=== PATIENT | male | born 1960 | race Caucasian/White ===

== ENCOUNTER 2018-04-17 16:49 | Emergency (ER) | payer OTHER ==
[~2018-04-17] VITALS: Ht 185.4 cm; Wt 117.9 kg
[2018-04-17] MEDS ORDERED: CELLCEPT500 MG PO (17:00)
[2018-04-17] MEDS ORDERED: PROGRAF1 MG (17:01)
[2018-04-17] MEDS ORDERED: PROGRAF0.5 MG PO (17:01)
[2018-04-17] MEDS ORDERED: ASPIR 8181 MG PO (17:01)
[2018-04-17] MEDS ORDERED: PREDNISONE 5 MG5 M1 PO (17:01)
[2018-04-17] MEDS ORDERED: URSO FORTE500 MG PO (17:01)
[2018-04-17] MEDS ORDERED: IRON325 (17:02)
[2018-04-17] MEDS ORDERED: ZOLOFT50 MG PO (17:02)
[2018-04-17] MEDS ORDERED: LISINOPRIL5 MG PO (17:02)
[2018-04-17] MEDS ORDERED: ZINC CHELATE50 MG PO (17:02)
[2018-04-17] MEDS ORDERED: CALCIUM + VITA1 EACH PO (17:03)
[2018-04-17] MEDS ORDERED: OMEPRAZOLE 20 M20 M1 PO (17:03)
[2018-04-17] MEDS ORDERED: AUGMENTIN 875-1 EACH PO (18:13)
[2018-04-17 18:34] VITALS: BP 122/74
== END 2018-04-17 18:31 | disposition home or self-care (01) ==
LOC: M.ERS 16:49
DX: S81.811A Laceration without foreign body, right lower leg, initial encounter (principal); E11.9 Type 2 diabetes mellitus without complications; I25.10 Atherosclerotic heart disease of native coronary artery without angina pectoris; I10 Essential (primary) hypertension; E78.5 Hyperlipidemia, unspecified; Z94.4 Liver transplant status; Z88.5 Allergy status to narcotic agent; X58.XXXA Exposure to other specified factors, initial encounter; Y93.89 Activity, other specified; Y92.89 Other specified places as the place of occurrence of the external cause; Y99.8 Other external cause status

== ENCOUNTER → 2019-11-17 | Outpatient (CLI) | payer OTHER ==
[~2019-11-17] MED LIST: ASPIR 8181 MG PO; AUGMENTIN 875-1 EACH PO; CALCIUM + VITA1 EACH PO; CELLCEPT500 MG PO; IRON325; LISINOPRIL5 MG PO; OMEPRAZOLE 20 M20 M1 PO; PREDNISONE 5 MG5 M1 PO; PROGRAF0.5 MG PO; PROGRAF1 MG; URSO FORTE500 MG PO; ZINC CHELATE50 MG PO; ZOLOFT50 MG PO
== END ==
LOC: M.MRI 16:26
DX: S83.281A Other tear of lateral meniscus, current injury, right knee, initial encounter (principal); M25.461 Effusion, right knee; X58.XXXA Exposure to other specified factors, initial encounter; Y93.9 Activity, unspecified; Y92.89 Other specified places as the place of occurrence of the external cause; Y99.8 Other external cause status

== ENCOUNTER 2020-01-26 08:37 | Inpatient (IN) | payer OTHER ==
[2020-01-21 10:17] LABS: HEMATOCRIT 38.4 % (42.0-52.0); HEMOGLOBIN 13.3 gm/dL (14.0-18.0); MCH 31.7 pg (26.0-34.0); MCHC 34.7 g/dL (28.0-37.0); MCV 91.4 fL (80.0-100.0); MPV 6.6 fl. (7.2-11.1); RBC 4.21 mil/uL (4.50-6.00); RDW-CV 14.3 % (10.5-14.5)
[2020-01-21 10:30] LABS: ALBUMIN 3.3 g/dL (3.4-5.0); CALCIUM 8.9 mg/dL (8.5-10.1); CREATININE 1.1 mg/dL (0.6-1.3); POTASSIUM 4.7 mmol/L (3.5-5.1); TOTAL BILIRUBIN 2.1 mg/dL (<0.1-1.0)
[2020-01-21 10:55] LABS: URINE BILIRUBIN NEGATIVE (Negative); URINE BLOOD TRACE (Negative); URINE CLARITY CLEAR; URINE COLOR YELLOW; URINE GLUCOSE-RANDOM 2+ (Negative); URINE KETONES NEGATIVE (Negative); URINE LEUKOCYTES-REFLEX 1+ (Negative); URINE NITRITE-REFLEX NEGATIVE (Negative); URINE PROTEIN NEGATIVE (Negative); URINE SPECIFIC GRAVITY 1.025 (1.005-1.030)
[2020-01-21 11:01] LABS: INR 1.1; PROTIME 11.7 Seconds (9.20-11.50)
[2020-01-21 11:01] LABS: SQUAMOUS NONE SEEN /LPF (0-3)
[2020-01-21 11:02] LABS: URINE WBC-REFLEX 0-5 Rare /HPF (0-5)
[2020-01-21 11:03] LABS: BACTERIA-REFLEX >30 Many /HPF (None Seen); CASTS None Seen /LPF (None Seen); CRYSTALS None Seen /LPF (None Seen); MUCUS None Seen strn/LPF (None Seen)
--- NOTE | 2020-01-21 14:16 | EKG ---
[place] [address] ELECTROCARDIOGRAM REPORT Name: TODD CASTANEDA Room: PRE IN [facility]#: [id number] Admission: Attend Phys: Javier Lei Discharge: Date of : 58 Date of Service: 01/21/20 1025 Report #: [id number] THIS REPORT FOR: //name// [facility] Test Date: 2020-01-21 Test Time: 10:25:24 Pat Name: TODD CASTANEDA Department: Room: Gender: [employer]: : 1960 Requested By: Sukhdev Mckeon Order Number: [id number] Marija MD: Abran Dukes Measurements Intervals [place] Rate: 70 P: 56 RI: 177 QRS: 3 QRSD: 102 T: 26 QT: 397 QTc: 429 Interpretive Statements Sinus rhythm Consider left atrial enlargement No previous ECG available for comparison Electronically Signed On 01-21-2020 14:15:33 CDT by Abran Dukes [email or web address] <ELECTRONICALLY SIGNED> By: Abran Dukes MD, [facility] 01/21/20 1415 1025 1025 Abran Dukes MD, FACC /EPI
[~2020-01-26] VITALS: Ht 188 cm; Wt 108.9 kg
--- NOTE | ~2020-01-26 | OP ---
[address] [address] OPERATIVE REPORT Name: TODD CASTANEDA Room: [address] IN [facility]#: [id number] Admission: 01/26/20 Attend Phys: Xochitl Adame Discharge: Date of : 58 Report #: [id number] THIS REPORT FOR: //name// cc: Qiana Preston Anna S. DO THIS REPORT FOR: //name// CC: Qiana Lei DATE OF SERVICE: 01/26/2020 PREOPERATIVE DIAGNOSIS: Right knee osteoarthritis. POSTOPERATIVE DIAGNOSIS: Right knee osteoarthritis. PROCEDURE: Right total knee arthroplasty. SURGEON: Sukhdev Mckeon II, D.O. APPLIQUE CUTTER: KEI Colin. ANESTHESIA: General endotracheal. ESTIMATED BLOOD LOSS: 50 mL. ANTIBIOTICS: Ancef preoperatively. DRAINS: Medium Hemovac. COMPLICATIONS: None. CONDITION OF THE PATIENT: Stable to recovery room. IMPLANTS: Listed in operative record and progress note. BRIEF HISTORY: The patient was seen in the preoperative area. Preoperative H and P was performed. Site was marked, questions were answered. Risks and benefits were discussed with the patient in detail about surgery. The patient wished to proceed assuming all risks. DESCRIPTION OF PROCEDURE: The patient was taken to the operative suite and placed supine on the operative table, given appropriate anesthesia. A well-padded tourniquet was applied to the upper thigh, which was inflated to 300 mmHg after gravity exsanguination. The operative knee was sterilely prepped and [facility] [address] [place] [address] OPERATIVE REPORT Name: TODD CASTANEDA Room: [address] IN .R.#: [id number] Admission: 01/26/20 Attend Phys: Xochitl Adame Discharge: Date of : 58 Report #: [id number] draped. Surgery began by midline incision. This was carried down to the subcutaneous tissues. A medial parapatellar arthrotomy was performed and carried down to bone. Patella was then everted and excess soft tissues were removed from around the femur. Femoral cutting block was then applied, checked with a drop min for rotational alignment, pinned in appropriate position and appropriate cuts were made. A 4-in-1 cutting block was then applied, checked for rotational alignment, pinned in appropriate position, and appropriate cuts were made. The tibia was then exposed. Excess meniscus was removed. Retractor was placed on collateral ligaments. The tibial cutting block was then applied, pinned in appropriate position, checked with a drop min for rotational alignment and slope, and appropriate cut was made. Tibial bone was removed. Tibial baseplate was then applied, checked for rotational alignment with the drop min and pinned in appropriate position. The femur was then applied and box cut was reamed. This was trialed with appropriate spacer, which showed excellent fit and fill and excellent stability of the knee through all range of motion. The patella was reamed in appropriate fashion and sized to appropriate size. Three peg holes were drilled and it was then trialed and showed excellent flexion and extension, excellent tracking of the patella within the groove. These trials were removed. The tibia was punched in appropriate fashion. Bone ends were cleansed with Pulsavac irrigation and cement was mixed and applied to final implants. These were then malleted into position and held the knee in extension and compressed to allow cement to cure. After it cured, excess was removed using [place] and osteotome. Wound was then copiously irrigated and the final spacer was then malleted into position. The tourniquet was deflated. Hemostasis was obtained with electrocautery. Pain cocktail was injected. PRP gel was sprayed throughout the internal aspects of the knee. Medium Hemovac drain was applied. Capsule was closed with #2 FiberWire and #1 Vicryl in [id number] fashion. Skin was closed with 2-0 Vicryl and running 3-0 Monocryl. Dermabond and sterile dressing applied. Gus wrap and PolarCare applied. The patient transported to recovery room in stable condition. Counts were correct throughout the procedure. By: [id number] Mckeon II DO /nt
[~2020-01-26 08:37] MED LIST changes: +IRON325 PO; +PROGRAF 1 MG1 MG PO; -PROGRAF1 MG; +SERTRALINE HCL50 MG PO; +ZINC CHELATE PO; -ZINC CHELATE50 MG PO; -ZOLOFT50 MG PO
[2020-01-26] MEDS ORDERED: TOPROL XL25 MG PO (08:56)
[2020-01-26 10:17] VITALS: BP 126/67
[2020-01-26 13:43] VITALS: BP 132/72
[2020-01-26 16:42] VITALS: BP 139/67
[2020-01-26 20:00] VITALS: BP 101/63
[2020-01-27] VITALS: BP 102/53
[2020-01-27 04:00] VITALS: BP 104/54
[2020-01-27 05:18] LABS: HEMATOCRIT 32.7 % (42.0-52.0); HEMOGLOBIN 11.8 gm/dL (14.0-18.0)
[2020-01-27] MEDS ORDERED: XARELTO10 MG PO (08:13)
[2020-01-27] MEDS ORDERED: PERCOCET PO (08:13)
[2020-01-27 09:32] VITALS: BP 97/57
[2020-01-27 10:20] VITALS: BP 97/57
[2020-01-27 12:00] VITALS: BP 105/59
== END 2020-01-27 15:30 | disposition home health service (06) | DRG 470 ==
LOC: M.ORTHSURG 08:37 → M.TBA 08:37 → M.PRE 11:15 → M.ORTHSURG 13:33 → M.PRE 13:41 → M.ORTHSURG 01-27 15:30
PROVIDERS: Orthopaedic Surgery; ADMIT Internal Medicine; ATTEND Internal Medicine
PROC: 0SRC0J9 Replacement of Right Knee Joint with Synthetic Substitute, Cemented, Open Approach (ICD-10-PCS; principal; 2020-01-26)
DX: M17.11 Unilateral primary osteoarthritis, right knee (principal); Z94.4 Liver transplant status; I10 Essential (primary) hypertension; E11.9 Type 2 diabetes mellitus without complications; I25.10 Atherosclerotic heart disease of native coronary artery without angina pectoris; H54.62 Unqualified visual loss, left eye, normal vision right eye; F32.9 Major depressive disorder, single episode, unspecified; K21.9 Gastro-esophageal reflux disease without esophagitis; E66.8 Other obesity; Z68.30 Body mass index [BMI] 30.0-30.9, adult; Z95.5 Presence of coronary angioplasty implant and graft; Z79.899 Other long term (current) drug therapy; Z03.818 Encounter for observation for suspected exposure to other biological agents ruled out; Z88.5 Allergy status to narcotic agent; Z79.82 Long term (current) use of aspirin